=== PATIENT | female | born 1995 ===

== ENCOUNTER → 2025-05-18 | Outpatient (CLI) | payer SELFPAY ==
[2025-05-18 17:41] LABS: Bacterial Vaginosis PCR Negative (NEGATIVE); Candida glabrata-krusei, PCR NOT DETECTED (NOT DETECT)
[2025-05-18 17:50] LABS: Candida Group, PCR DETECTED (NOT DETECT)
== END ==
LOC: LAB 12:13 → LAB SHORT 12:13
PROVIDERS: Family Medicine
DX: N89.8 Other specified noninflammatory disorders of vagina (principal)
CPT/HCPCS: 81515